=== PATIENT | female | born 1950 | race Caucasian/White ===

== ENCOUNTER 2016-11-03 15:05 | Emergency (ER) | payer MEDICARE, MEDICAID ==
--- NOTE | 2016-11-03 15:43 | ED Physician Chart ---
Chief Complaint/HPI - Patient Information Date Seen:: 11/03/16 Time Seen:: 15:30 Chief Complaint:: Chest Pain History of Present Illness:: onset x 2 days of intermittent, sharp, anterior Chest Pains with myalgias,; no SOB, N/V, diaphoresis; no Abd pain, A/N/V/D/C, fever, chills; pt states her chest pain is exertional in nature with pressure to sharp type of chest pains lasting 20 minutes intermittently over the past several days Historian:: Patient, EMS, Family Member, Medical Records Review:: Nurse's Note Reviewed, Old Chart Reviewed, EMS run form Reviewed, Transfer documents Reviewed Review of Systems - Review of Systems General/Constitutional: Fever, Chills, No weight loss, Weakness, No diaphoresis , No edema, No loss of appetite Skin: No skin lesions, Rash, No bruising Head: No headache, No light-headedness Eyes: No loss of vision, No pain, No diplopia ENT: No earache, Nasal drainage, No sore throat, No tinnitus Neck: No neck pain, No swelling, No thyromegaly, No stiffness, No mass noted Cardio Vascular: Chest pain, Palpitations, No PND, No orthopnea, No edema Pulmonary: SOB, Cough, No sputum, No wheezing GI: Nausea, Vomiting, Diarrhea, No pain, No melena, No hematochezia, No constipation, No hematemesis G/U: No dysuria, No frequency, No hematuria Medical Office Receptionist Assistant: Abnormal vaginal bleeding, No contraction Musculoskeletal: No bone or joint pain, Back pain, Muscle pain Endocrine: No polyuria, No polydipsia Psychiatric: No prior psych history, No depression, No anxiety, No suicidal ideation Hematopoietic: No bruising, No lymphadenopathy Allergic/Immuno: No urticaria, No angioedema Neurological: No syncope, No focal symptoms, No weakness, No paresthesia, No headache, No seizure, No dizziness, No confusion, No vertigo Past Medical History - Past Medical History Past Medical History: HTN, Asthma/COPD, Dyslipidemia, PUD/GERD Family History: Diabetes Melitus, HTN Social History: Smoker, No Alcohol, No Drug Use, Single Surgical History: Psychiatricy History: None Medication: Reviewed Family Medical History - Family Member Father Living Status: Other Medical History: polycistic kidneys Physical Exam - Physical Examination General/Constitutional: Awake, Well-developed, well-nourished, Alert, No distress, GCS 15, Non-toxic appearing, Ambulatory Head: Atraumatic Eyes: Lids, conjuctiva normal, PERRL, EOMI Skin: Nl inspection, No rash, No skin lesions, No ecchymosis, Well hydrated, No lymphadenopathy ENMT: External ears, nose nl, Nasal exam nl, Lips, teeth, gums nl Neck: Nontender, Full ROM w/o pain, No JVD, No nuchal rigidity, No bruit, No mass, No stridor Respiratory: Nl effort/Exclusion, Clear to Auscultation, No Wheeze/Rhonchi/Rales Cardio Vascular: RRR, No murmur, gallop, rubs, NL S1 S2 GI: No tenderness/rebounding/guarding, No organomegaly, No hernia, Normal BS's, Nondistended, No mass/bruits, No McBurney tenderness : No CVA tenderness Extremities: No tenderness or effusion, Full ROM, normal strength in all extremities, No edema, Normal digits & nails Neuro/Psych: Alert/oriented, DTR's symmetric, Normal sensory exam, Normal motor strength, Judgement/insight normal, Mood normal, Normal gait, No focal deficits Misc: normal gait, Normal back, No paraspinal tenderness Labs/Radiology/EKG Results - Lab Results Comments:: Triglycerides: 393 - Radiology Results Results: CXR: COPD; NAD - EKG Interpretations EKG Time:: 15:53 Rate & Rhythm: 80; NSR Comments:: non-specific st-t changes ED Septic Shock - . Is Septic Shock (SBP<90, OR Lactate>4 mmol\L) present?: No Reassessment (Disposition) - Reassessment Reassessment Condition:: Improved - Diagnosis Diagnosis:: Chest Pain; Angina Pectoris; Myalgias - Aftercare/Follow up Instructions Aftercare/Follow-Up Instructions:: Counseled pt regarding lab results/diagnosis & need follow up, Counseled pt & family regarding lab results/diagnosis & need follow up - Patient Disposition Discharge/Transfer:: Acute Care w/in this hosp Accepting Physician:: Dr. Collins Time Called:: 1829 Time Responded:: 19:00 Admitted to:: Telemetry Spoke to:: Dr. Collins Admitting Medical Physician:: Dr. Collins Condition at Disposition:: Stable, Improved
[2016-11-03] MEDS ORDERED: Aspirin 81mg Chewable Tab PO STA (15:44)
[2016-11-03] MEDS ORDERED: Aspirin 81mg Chewable Tab ONE (15:52)
--- NOTE | 2016-11-03 16:05 | Diagnostic Imaging Report ---
Portable chest x-ray History: Pain Allowing for portable technique the heart size is normal. No focal pulmonary parenchymal processes. No hilar or mediastinal abnormalities. Impression: No acute abnormalities.
[2016-11-03 16:17] LABS: % BASOPHILS 0.6 % (0.0-2.0); % EOSINOPHILS 1.6 % (0.0-5.0); % LYMPHOCYTES 39.9 % (20.0-50.0); % MONOCYTES 6.3 % (2.0-10.0); % NEUTROPHILS 51.6 % (40.0-80.0); HEMATOCRIT 40.4 % (35.0-45.0); HEMOGLOBIN 13.7 gm/dL (11.7-16.1); MEAN CELL VOLUME 86.9 fl (81-100); MEAN CORPUSCULAR HEMOGLOBIN 29.4 pg (27.0-31.0); MEAN CORPUSCULAR HGB CONC 33.8 pg (28.0-36.0); NEUTROPHILE ABSOLUTE 3.9 Th/cmm (1.8-8.0); PLATELET COUNT 352 Th/cmm (150-400); RED BLOOD COUNT 4.64 Mil/cmm (3.80-5.20); RED CELL DISTRIBUTION WIDTH 12.7 % (11.5-20.0); WHITE BLOOD COUNT 7.5 Th/cmm (4.8-10.8)
[2016-11-03 16:28] LABS: INR 0.94 (0.5-1.4); PROTHROMBIN TIME (TEST) 9.8 SECONDS (9.5-11.5)
[2016-11-03 16:33] LABS: TROP I < 0.01 ng/mL (0.01-0.05)
[2016-11-03 16:54] LABS: ALB/GLOB RATIO 1.7 (1.0-1.8); ALKALINE PHOSPHATASE 60 U/L (34-104); ANION GAP 4.9 (7.0-16.0); BILIRUBIN,TOTAL 0.2 mg/dL (0.3-1.0); BUN - UREA NITROGEN 9 mg/dL (7-25); BUN/CREATININE RATIO 11.3; CALCIUM SERUM 10.1 mg/dL (8.6-10.3); CHLORIDE 108 mEq/L (98-107); CHOLESTEROL 194 mg/dL (<200); CREATININE - SERUM 0.8 mg/dL (0.6-1.2); GLUCOSE 81 mg/dL (70-105); POTASSIUM SERUM 3.9 mEq/L (3.5-5.1); SGOT 13 U/L (13-39); SGPT/ALT 11 U/L (7-52); SODIUM SERUM 137 mEq/L (136-145); TRIGLYCERIDES 393 mg/dL (<150)
[2016-11-03 17:28] LABS: BNP 8.8 pg/mL (5.0-100.0)
[2016-11-03] MEDS ORDERED: APAP/Codeine 300 mg/30 mg Tab PO STA (19:00)
[2016-11-03] MEDS ORDERED: APAP/Codeine 300 mg/30 mg Tab ONE (19:10)
[2016-11-03] MEDS ORDERED: Magnesium Hydroxide (MOM) 30 mL UDC PO PRN (19:55)
[2016-11-03] MEDS ORDERED: Morphine Sulfate 2 mg/mL 1mL Syr IVP PRN (19:55)
[2016-11-03] MEDS ORDERED: Hydrocodone/APAP 5mg/325mg Tab PO PRN (19:55)
[2016-11-03] MEDS ORDERED: Non-Formulary Item 1 EA (Fluticasone/Salmeterol [Advair 250-50 Diskus] 1 PUFF) INH PRN (19:59)
[2016-11-03] MEDS ORDERED: Nitroglycerin 0.2 mg/hr Tdm TD ONE (20:00)
[2016-11-04] MEDS ORDERED: Non-Formulary Item 1 EA (Omeprazole [Omeprazole] 20 MG) PO SCH (09:00)
[2016-11-04] MEDS ORDERED: Enoxaparin 30 mg/0.3 mL 0.3mL Syr SUBQ SCH (09:00)
[2016-11-04] MEDS ORDERED: Non-Formulary Item 1 EA (Pravastatin Sodium [Pravastatin*] 40 MG) PO SCH (09:00)
[2016-11-04] MEDS ORDERED: Aspirin 81mg Chewable Tab PO SCH (09:00)
== END 2016-11-03 20:30 | disposition left against medical advice (07) ==
LOC: ER 15:05
DX: I20.9 Angina pectoris, unspecified (principal); M79.1 Myalgia; I10 Essential (primary) hypertension; E78.5 Hyperlipidemia, unspecified; F17.200 Nicotine dependence, unspecified, uncomplicated; Z98.890 Other specified postprocedural states
CPT/HCPCS: 99285; 94760; 93005; 71010; 84484; 83880; 36415; 85025; 85610; 82550; 80053; 80061; 87081; Z7610